=== PATIENT | female | born 1985 | race African-American/Black ===

== ENCOUNTER 2021-06-14 05:34 | Emergency (ER) | payer SELFPAY ==
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
[2021-06-14 05:43] VITALS: BP 118/75; BP 136/82; PULSE 72; PULSE 86; RESP 18; TEMP 36.6; O2SAT 98; BMI 22.8
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
[2021-06-14 06:39] LABS: UPreg QC Valid YES; Urine Pregnancy NEGATIVE (NEGATIVE)
--- NOTE | 2021-06-14 06:52 | PC.NURSE ---
Upon furthering care with this PT, no markings noted across the neck. PT continues complain of right hip pain but is able to ambulate without difficulty.
[2021-06-14] MEDS: iohexoL 350 MG/ML 100 ML INFUS..BTL IV (06:57)
== END 2021-06-14 07:57 ==
PROVIDERS: Emergency Provider Student in an Organized Health Care Education/Training Program
DX: R10.9 Unspecified abdominal pain (principal); Z72.89 Other problems related to lifestyle; Z63.0 Problems in relationship with spouse or partner
CPT/HCPCS: 71260; 74177; 81025; 99284; Q9967